=== PATIENT | male | born 1960 | race Caucasian/White ===

== ENCOUNTER 2021-03-24 01:59 | Day surgery (SDC) | payer BC, SELFPAY ==
[2021-03-11 10:41] VITALS: BMI 25.0
--- NOTE | 2021-03-23 10:36 | WPDANESEPPF ---
Anes - Initial Pre Proc Eval Procedure: Operation Date: 03/24/21 10:00 Proposed Procedures p Screening Colonoscopy - Ahsan Hope MD Date/Time: 03/23/21 10:36 Surgeon: Ahsan Hope MD Pre Op Diagnosis: neoplasm screening, hx of colon polyps Patient Data Age: 60 Gender: M Height: 1.68 m Weight: 70.4 kg Allergies Allergy/AdvReac Type Severity Reaction Status Date / Time No Known Allergies Allergy Verified 03/24/21 08:49 Home Medications Medication Instructions Recorded Confirmed Type famotidine 40 mg PO BID 03/11/21 03/24/21 History lisinopril-hydrochlorothiazide 20 - 25 tablet PO DAILY 03/11/21 03/24/21 History tizanidine 2 mg PO DAILY 03/11/21 03/24/21 History cetirizine 10 mg POST-TRANSFUSION 03/23/21 03/24/21 History Patient hx anesthesia problems: none Family hx anesthesia problems: none [facility] Past Medical History Medical History (Updated 03/23/21 @ 10:36 by Rojelio Calvillo DO) GERD (gastroesophageal reflux disease) Hypertension Social History Social History Smoking status: Former smoker Tobacco type: cigarettes Substance use type: does not use Living arrangements: with family Gender identity (if verbalized by the patient): Male Anes - Eval Final PreProcedure Day of Procedure 03/23/21 10:36 Patient weight: overweight Heart: regular rate and rhythm Lungs: clear to auscultation and normal air movement Airway: Mallampati scale class II Neurological: alert and oriented Last oral intake: >/= 8 hours ASA classification: II Emergent: no Anesthetic plan: proceed Anesthesia type and monitoring: general GIVS and standard monitoring Informed Consent: The patient's anesthetic plan and its attendant risks and benefits were discussed with the patient/family/POA. Questions were solicited and answers provided to the satisfaction of the patient/family/POA.
[2021-03-24 08:51] VITALS: BP 143/85; PULSE 71; RESP 16; TEMP 36.2; O2SAT 99; BMI 23.8
[2021-03-24] MEDS: LACTATED RINGERS 1,000 ML 150 ML IV CONT (08:58)
--- NOTE | 2021-03-24 09:45 | PM.HPGS ---
History of Present Illness History of Present Illness Consent: Risks, benefits, and alternatives have been discussed and questions answered. Patient agrees to proceed with procedure. Chief complaint: neoplasm screening, hx of colon polyps Narrative: Royer Bruner is a 60 year old male with colon polyp 2016, also mother had colon cancer Review of Systems Constitutional: Constitutional: Denies headache(s) and Denies weakness Eyes: Eyes: Denies blurry vision ENT: Reports Normal hearing present, Denies headache(s) and Denies neck pain Cardiovascular: Cardiovascular: Denies chest pain and Denies dyspnea Respiratory: Respiratory: Denies dyspnea Gastrointestinal: Gastrointestinal: Reports no additional gastrointestinal complaints Genitourinary: Genitourinary: Denies dysuria Musculoskeletal: Musculoskeletal: Denies neck pain Integumentary/Breasts: Skin/Breast: Denies dry skin Neurologic: Reports Normal hearing present, Denies headache(s) and Denies weakness Psychiatric: Psychiatric: Denies anxiety Endocrine: Endocrine: Denies change in body appearance Hematologic/Lymphatic: Hematologic/Lymphatic: Denies easy bleeding Allergic/Immunologic: Allergic/Immunologic: Denies urticaria PMFSH Past Medical History Medical History (Updated 03/24/21 @ 09:46 by Ahsan Hope MD) Adenomatous colon polyp Family history of colon cancer in mother GERD (gastroesophageal reflux disease) Hypertension Social History Social History Smoking status: Former smoker Tobacco type: cigarettes Substance use type: does not use Living arrangements: with family Gender identity (if verbalized by the patient): Male Meds Home Medications and Allergies Home Medications Medication Instructions Recorded Confirmed Type famotidine 40 mg PO BID 03/11/21 03/24/21 History lisinopril-hydrochlorothiazide 20 - 25 tablet PO DAILY 03/11/21 03/24/21 History tizanidine 2 mg PO DAILY 03/11/21 03/24/21 History cetirizine 10 mg POST-TRANSFUSION 03/23/21 03/24/21 History Allergies Allergy/AdvReac Type Severity Reaction Status Date / Time No Known Allergies Allergy Verified 03/24/21 08:49 Vital Signs Vital Signs - 24 hr 03/24/21 08:51 Temperature 97.2 F L Pulse Rate 71 Respiratory Rate 16 Blood Pressure 143/85 H Pulse Oximetry 99 Exam Const: General: comfortable and no acute distress HENMT: General nose exam: Normal nares present Eyes: General: appearance normal, both eyes and all related structures Neck: Neck: no JVD Resp: Auscultation: clear to auscultation bilaterally Cardio: Rate: regular rate Rhythm: regular rhythm GI: Inspection: non-distended GI Palp: Yes Soft to palpation Skin: General skin exam: normal color Neuro: General: gait normal Speech: normal speech Extrem: General: normal to inspection Psych: Mental Status: mental status grossly normal Assessment and Plan Assessment and plan (1) Adenomatous colon polyp: Code(s): D12.6 - Benign neoplasm of colon, unspecified Status: Acute Assessment and Plan: colonoscopy (2) Family history of colon cancer in mother: Code(s): Z80.0 - Family history of malignant neoplasm of digestive organs Status: Acute
[2021-03-24 10:07] VITALS: BP 102/69; PULSE 77; RESP 22; O2SAT 98
[2021-03-24 10:17] VITALS: BP 107/77; PULSE 72; RESP 20; O2SAT 97
[2021-03-24 10:27] VITALS: BP 114/77; PULSE 56; RESP 22; O2SAT 98
== END 2021-03-24 10:37 | disposition home or self-care (01) ==
PROVIDERS: Visit Provider Internal Medicine Gastroenterology
PROC: 0DJD8ZZ Inspection of Lower Intestinal Tract, Via Natural or Artificial Opening Endoscopic (ICD-10-PCS; CPT 45378; principal; 2021-03-24 10:00)
DX: Z12.11 Encounter for screening for malignant neoplasm of colon (principal); K57.30 Diverticulosis of large intestine without perforation or abscess without bleeding; K64.8 Other hemorrhoids; Z86.010 Personal history of colon polyps; Z80.0 Family history of malignant neoplasm of digestive organs; I10 Essential (primary) hypertension; K21.9 Gastro-esophageal reflux disease without esophagitis; Z87.891 Personal history of nicotine dependence
CPT/HCPCS: 45378; J2704; J7120